=== PATIENT | female | born 1955 | race Caucasian/White ===

== ENCOUNTER 2023-03-30 21:07 | Inpatient (IN) | payer MEDICAID, OTHER ==
[~2023-03-30] VITALS: Ht 170.2 cm; Wt 97.5 kg
[~2023-03-30 21:07] MED LIST: ALIS150T PO; ASPI-1406 PO; BIMA2.5D4 EACHEYE; CALC667C4 PO; CARV12.545 PO; EMTR1TAB11 PO; FOLI0.8T23 PO; OMEP20CA14 PO; RALT400T PO
[2023-03-30 23:02] LABS: BASOPHILS % 0.6 % (0.0-2.0); DIFFERENTIAL COMMENT 0; EOSINOPHILS % 1.1 % (0.0-5.0); HEMOGLOBIN. 11.4 g/dL (12.0-16.0); LYMPHOCYTES % 7.4 % (20.0-50.0); MEAN CORPUSCULAR HEMOGLOBIN 33.3 pg (28.0-32.0); MEAN CORPUSCULAR HGB CONC 32.6 g/dL (31.0-37.0); MEAN CORPUSCULAR VOLUME 102.2 fL (81.0-99.0); MEAN PLATELET VOLUME 10.3 fl (7.4-10.4); NEUTROPHILS % 83.9 % (40.0-76.0); PLATELET 184 x1000/uL (130-400); RED BLOOD CELL COUNT 3.42 mill/uL (4.2-5.4); RED CELL DISTRIBUTION WIDTH 18.3 % (11.6-14.6)
[2023-03-30 23:14] LABS: CHLORIDE 92 mEq/L (98-107); INDEX HEMOLYSI 1 (1-3); INDEX ICTERIC 1 (1-4); INDEX LIPEMIC 1 (1-3); POTASSIUM 4.5 mEq/L (3.5-5.1); SODIUM 130 mEq/L (136-145)
[2023-03-30 23:24] LABS: ALANINE AMINOTRANSFERASE 22 IU/L (13-61); ALBUMIN 3.3 g/dL (3.4-5.0); ASPARTATE AMINOTRANSFERASE 15 IU/L (15-37); BILIRUBIN TOTAL 0.6 mg/dL (0.1-1.0); CALCIUM 9.5 mg/dL (8.5-10.1); CARBON DIOXIDE 31 mEq/L (21-32); GLUCOSE 255 mg/dL (70-105); PROTEIN TOTAL 8.1 g/dL (6.0-8.3); TROPONIN I HIGH SENSITIVITY 8 ng/L (<54); UREA NITROGEN BLOOD 42 mg/dL (7-21)
[2023-03-30 23:28] LABS: CREATININE 5.6 mg/dL (0.6-1.3)
[2023-03-31 12:14] VITALS: BP 113/36; PULSE 54; RESP 18; TEMP 97.6
[2023-03-31 12:18] VITALS: BP 113/36; PULSE 54; RESP 18; TEMP 97.9
[2023-03-31] MEDS ORDERED: ACETAMINOPHEN 325MG TABLET PO PRN (14:00)
[2023-03-31] MEDS ORDERED: DEXTROSE 50% WATER 50ML SYRINGE IV PRN (14:00)
[2023-03-31] MEDS ORDERED: ONDANSETRON HCL 4MG/2ML INJ IV PRN (14:00)
[2023-03-31] MEDS ORDERED: NON FORMULARY PATIENT HOME MED XX SCH (14:15)
[2023-03-31] MEDS: EMTRICITABINE 200MG CAPSULE PO SCH (16:17)
[2023-03-31] MEDS: TENOFOVIR 300MG TABLET PO SCH (16:17)
[2023-03-31 16:30] VITALS: BP 140/47; PULSE 60; RESP 20; TEMP 96.4
[2023-03-31] MEDS: BLOOD SUGAR DIAGNOSTIC STRIP TEST SCH ×2 (17:10→21:17)
[2023-03-31] MEDS: INSULIN LISPRO 100 UNITS/ML SUBCUT SCH ×2 (17:45→21:17)
[2023-03-31 20:00] VITALS: BP 118/56; PULSE 54; RESP 54; TEMP 97.6
[2023-03-31] MEDS ORDERED: NALOXONE HCL 0.4MG/ML VIAL IV PRN (21:45)
[2023-03-31] MEDS: HYDROCODONE/ACETAMINOPHEN 5/325MG TABLET PO PRN (22:02)
[2023-04-01] VITALS (9 sets, daily range): BP systolic 89–135; BP diastolic 29–80; PULSE 53–92; RESP 15–20; TEMP 96.5–98.6
[2023-04-01] MEDS: HYDROCODONE/ACETAMINOPHEN 5/325MG TABLET PO PRN ×2 (04:55→09:52)
[2023-04-01] MEDS: INSULIN LISPRO 100 UNITS/ML SUBCUT SCH ×4 (06:49→21:03)
[2023-04-01] MEDS: BLOOD SUGAR DIAGNOSTIC STRIP TEST SCH ×4 (06:50→21:04)
[2023-04-01 07:33] LABS: BASOPHILS % 0.8 % (0.0-2.0); DIFFERENTIAL COMMENT 0; EOSINOPHILS % 2.6 % (0.0-5.0); HEMATOCRIT. 32.4 % (36.0-48.0); HEMOGLOBIN. 10.7 g/dL (12.0-16.0); LYMPHOCYTES % 13.7 % (20.0-50.0); MEAN CORPUSCULAR HEMOGLOBIN 34.1 pg (28.0-32.0); MEAN CORPUSCULAR HGB CONC 33.1 g/dL (31.0-37.0); MEAN CORPUSCULAR VOLUME 103.1 fL (81.0-99.0); MEAN PLATELET VOLUME 10.6 fl (7.4-10.4); MONOCYTES % 5.4 % (2.0-8.0); NEUTROPHILS % 77.5 % (40.0-76.0); PLATELET 171 x1000/uL (130-400); RED BLOOD CELL COUNT 3.14 mill/uL (4.2-5.4); RED CELL DISTRIBUTION WIDTH 18.3 % (11.6-14.6); WHITE BLOOD COUNT 7.9 x1000/uL (4.5-11.0)
[2023-04-01 08:21] LABS: VITAMIN B12 SERUM 651 pg/mL (211-911)
[2023-04-01 08:26] LABS: HEPATITIS B SURFACE ANTIGEN NEGATIVE
[2023-04-01 08:54] LABS: HEPATITIS B CORE AB IGM NEGATIVE; HEPATITIS C VIR.AB 0.27 INDEXVAL (0.00-0.80)
[2023-04-01 08:56] LABS: HEPATITIS A AB IGM NEGATIVE (NEGATIVE)
[2023-04-01 09:09] LABS: CALCIUM 9.1 mg/dL (8.5-10.1)
[2023-04-01 09:23] LABS: POTASSIUM 4.7 mEq/L (3.5-5.1); THYROID STIMULATING HORMONE 3.5 uIU/mL (0.36-3.74)
[2023-04-01] MEDS: CALCIUM ACETATE 667MG CAPSULE PO SCH ×3 (09:50→17:52)
[2023-04-01] MEDS: EMTRICITABINE 200MG CAPSULE PO SCH (09:50)
[2023-04-01] MEDS: TENOFOVIR 300MG TABLET PO SCH (09:50)
[2023-04-01] MEDS: FOLIC ACID/VITAMIN B COMP W-C TABLET PO SCH (09:50)
[2023-04-01 10:15] LABS: CREATININE 6.7 mg/dL (0.6-1.3)
[2023-04-01] MEDS: METHOCARBAMOL 750MG TABLET PO SCH (20:34)
[2023-04-01] MEDS ORDERED: ATORVASTATIN CALCIUM 20MG TABLET PO SCH (21:00)
[2023-04-02] VITALS: BP 104/44; PULSE 63; RESP 19; TEMP 97.9
[2023-04-02] MEDS: HYDROCODONE/ACETAMINOPHEN 5/325MG TABLET PO PRN ×2 (00:48→06:00)
[2023-04-02 04:00] VITALS: BP 109/48; PULSE 58; RESP 16; TEMP 97.7
[2023-04-02 08:00] VITALS: BP 102/46; PULSE 55; RESP 18; TEMP 96.6
[2023-04-02] MEDS: FOLIC ACID/VITAMIN B COMP W-C TABLET PO SCH (08:58)
[2023-04-02] MEDS: METHOCARBAMOL 750MG TABLET PO SCH (08:58)
[2023-04-02] MEDS: CALCIUM ACETATE 667MG CAPSULE PO SCH ×2 (08:58→12:13)
[2023-04-02] MEDS: TENOFOVIR 300MG TABLET PO SCH (08:58)
[2023-04-02] MEDS: EMTRICITABINE 200MG CAPSULE PO SCH (08:58)
[2023-04-02] MEDS: INSULIN LISPRO 100 UNITS/ML SUBCUT SCH ×2 (08:59→12:12)
[2023-04-02 09:07] LABS: ABSOLUTE EOSINOPHILS 0.3 x10E3/uL (0.0-0.4); ABSOLUTE LYMPHOCYTES 1.1 x10E3/uL (0.7-3.1); ABSOLUTE MONOCYTES 0.5 x10E3/uL (0.1-0.9); ABSOLUTE NEUTROPHILS 6.1 x10E3/uL (1.4-7.0); BASOPHILS 1 % (Not Estab.); EOSINOPHILS 4 % (Not Estab.); HEMATOCRIT 32.3 % (34.0-46.6); HEMOGLOBIN 10.6 g/dL (11.1-15.9); IMMATURE GRANULOCYTES 0 % (Not Estab.); LYMPHOCYTES 14 % (Not Estab.); MEAN CORPUSCULAR HEMOGLOBIN 33.7 pg (26.6-33.0); MEAN CORPUSCULAR HGB CONC. 32.8 g/dL (31.5-35.7); MEAN CORPUSCULAR VOLUME 103 fL (79-97); MONOCYTES 6 % (Not Estab.); NEUTROPHILS 75 % (Not Estab.); PLATELETS 185 x10E3/uL (150-450); RBC 3.15 x10E6/uL (3.77-5.28); RED CELL DISTRIBUTION WIDTH 15.7 % (11.7-15.4); WBC 8.1 x10E3/uL (3.4-10.8)
[2023-04-02 10:10] LABS: % CD 3 POS. LYMPHOCYTES 75.5 % (57.5-86.2); % CD 4 POS. LYMPHOCYTES 47.1 % (30.8-58.5); % CD 8 POS. LYMPH 29.5 % (12.0-35.5); ABSOLUTE CD 3 831 /uL (622-2402); ABSOLUTE CD 4 HELPER 518 /uL (359-1519); ABSOLUTE CD 8 SUPPRESSOR 325 /uL (109-897)
[2023-04-02 10:44] VITALS: BP 102/46; PULSE 55; TEMP 96.6; O2SAT 95
[2023-04-02 12:00] VITALS: BP 105/45; PULSE 59; RESP 20; TEMP 96.3
[2023-04-02] MEDS: BLOOD SUGAR DIAGNOSTIC STRIP TEST SCH (12:03)
== END 2023-04-02 15:23 | disposition home or self-care (01) | DRG 48 ==
LOC: ER 21:07 → 8WST 03-31 01:19
PROVIDERS: ADMIT Internal Medicine; ATTEND Internal Medicine
PROC: 5A1D70Z Performance of Urinary Filtration, Intermittent, Less than 6 Hours Per Day (ICD-10-PCS; 2023-04-01)
PROC: 4A00X4Z Measurement of Central Nervous Electrical Activity, External Approach (ICD-10-PCS; principal; 2023-04-02)
DX: G90.8 Other disorders of autonomic nervous system (principal); G92.8 Other toxic encephalopathy; E44.1 Mild protein-calorie malnutrition; I13.2 Hypertensive heart and chronic kidney disease with heart failure and with stage 5 chronic kidney disease, or end stage renal disease; B20 Human immunodeficiency virus [HIV] disease; E87.1 Hypo-osmolality and hyponatremia; D72.829 Elevated white blood cell count, unspecified; E11.22 Type 2 diabetes mellitus with diabetic chronic kidney disease; E11.65 Type 2 diabetes mellitus with hyperglycemia; N18.6 End stage renal disease; I50.32 Chronic diastolic (congestive) heart failure; E66.01 Morbid (severe) obesity due to excess calories; Z99.2 Dependence on renal dialysis; Z96.652 Presence of left artificial knee joint; Z68.33 Body mass index [BMI] 33.0-33.9, adult; Z79.4 Long term (current) use of insulin
CPT/HCPCS: 36415; 71045; 80048; 80053; 82607; 82962; 83605; 83735; 84100; 84443; 84484; 85025; 86359; 86360; 86705; 86709; 86803; 87340; 90935; 93005; 95816; 97162; 99291; J1815

== ENCOUNTER 2023-11-08 14:26 | Inpatient (IN) | payer MEDICAID ==
[~2023-11-08] VITALS: Ht 170.2 cm; Wt 117.5 kg
[2023-11-08] MEDS: MORPHINE SULFATE 4 MG/ML INJ (FOR IV/IM USE) IV ONE (15:15)
[2023-11-08 18:05] LABS: BASOPHILS % 0.6 % (0.0-2.0); DIFFERENTIAL COMMENT 0; EOSINOPHILS % 0.8 % (0.0-5.0); HEMATOCRIT. 32.1 % (36.0-48.0); HEMOGLOBIN. 10.1 g/dL (12.0-16.0); LYMPHOCYTES % 15.4 % (20.0-50.0); MEAN CORPUSCULAR HEMOGLOBIN 32.5 pg (28.0-32.0); MEAN CORPUSCULAR HGB CONC 31.4 g/dL (31.0-37.0); MEAN CORPUSCULAR VOLUME 103.2 fL (81.0-99.0); MEAN PLATELET VOLUME 11.2 fl (7.4-10.4); MONOCYTES % 4.8 % (2.0-8.0); NEUTROPHILS % 78.4 % (40.0-76.0); PLATELET 125 x1000/uL (130-400); RED BLOOD CELL COUNT 3.11 mill/uL (4.2-5.4); RED CELL DISTRIBUTION WIDTH 20.9 % (11.6-14.6)
[2023-11-08 18:12] LABS: CHLORIDE 97 mEq/L (98-107); POTASSIUM 4.2 mEq/L (3.5-5.1); SODIUM 135 mEq/L (136-145)
[2023-11-08 18:13] LABS: CALCIUM 8.9 mg/dL (8.7-10.4); CARBON DIOXIDE 34 mEq/L (21-32)
[2023-11-08 18:14] LABS: INR 1.1; PARTIAL THROMBOPLASTIN TIME 26.1 sec (23.4-31.0); PROTHROMBIN TIME 12.1 sec (9.6-11.0)
[2023-11-08 18:18] LABS: CREATININE 3.7 mg/dL (0.6-1.0); GLUCOSE 181 mg/dL (70-105); UREA NITROGEN BLOOD 17 mg/dL (9-23)
[2023-11-08 18:19] LABS: TROPONIN I HIGH SENSITIVITY 14 ng/L (3.0-34)
[2023-11-08] MEDS: CEFTRIAXONE 1GM/50ML 50 ML IV ONE (19:27)
[2023-11-08] MEDS: MORPHINE SULFATE 4 MG/ML INJ (FOR IV/IM USE) IV NR (19:44)
[2023-11-09] VITALS (7 sets, daily range): BP systolic 99–142; BP diastolic 62–96; PULSE 62–142; RESP 18–19; TEMP 97–98.7
[2023-11-09] MEDS: HYDROCODONE/ACETAMINOPHEN 5/325MG TABLET PO PRN (00:22)
[2023-11-09] MEDS: VANCOMYCIN 2,000 MG in DEXT 5% WATER 500 ML IV NR (03:06)
[2023-11-09 08:37] LABS: HEPATITIS B SURFACE ANTIGEN NEGATIVE (Negative)
[2023-11-09 08:58] LABS: HEPATITIS C AB NON REACTIVE (Neg) (Negative)
[2023-11-09] MEDS ORDERED: DEXTROSE 50% WATER 50ML SYRINGE IV PRN ×2 (09:15)
[2023-11-09] MEDS ORDERED: MAGNESIUM/ALUMINUM HYDROXIDE/SIMETHICONE 30ML UDC PO PRN (09:15)
[2023-11-09] MEDS ORDERED: ONDANSETRON HCL 4MG/2ML INJ IV PRN (09:15)
[2023-11-09] MEDS ORDERED: CLONIDINE 0.1MG TABLET PO PRN (09:15)
[2023-11-09] MEDS ORDERED: ACETAMINOPHEN 325MG TABLET PO PRN (09:15)
[2023-11-09] MEDS ORDERED: ATOR10TA PO (09:26)
[2023-11-09] MEDS ORDERED: BIMA2.5D4 EACHEYE (09:34)
[2023-11-09] MEDS ORDERED: DIPH1TAB MT (09:34)
[2023-11-09] MEDS ORDERED: HYDR-4379 PO (09:34)
[2023-11-09] MEDS ORDERED: DOLU1TAB MT (09:35)
[2023-11-09] MEDS ORDERED: FAMO20TA8 PO (09:36)
[2023-11-09] MEDS ORDERED: EMPA10TA MT (09:36)
[2023-11-09] MEDS ORDERED: GALC120S SQ (09:39)
[2023-11-09] MEDS ORDERED: LOSA50TA41 PO (09:39)
[2023-11-09] MEDS ORDERED: RIBO100T3 * (09:43)
[2023-11-09] MEDS ORDERED: MULT-1146 PO (09:43)
[2023-11-09] MEDS ORDERED: POLY250017 MT (09:43)
[2023-11-09] MEDS ORDERED: SERT25TA74 PO (09:43)
[2023-11-09] MEDS ORDERED: SEVE800T8 PO (09:43)
[2023-11-09] MEDS ORDERED: ZINC113C10 TP (09:45)
[2023-11-09] MEDS ORDERED: UBRO50TA (09:45)
[2023-11-09] MEDS ORDERED: NALOXONE HCL 0.4MG/ML VIAL IV PRN (11:30)
[2023-11-09] MEDS: EMPAGLIFLOZIN 10MG TABLET PO SCH (12:15)
[2023-11-09] MEDS: SEVELAMER CARBONATE 800 MG TABLET PO SCH (12:29)
[2023-11-09] MEDS: LOSARTAN 50 MG TABLET PO SCH (12:36)
[2023-11-09] MEDS: CARVEDILOL 12.5MG TABLET PO SCH (12:37)
[2023-11-09] MEDS: HYDROCORTISONE 10MG TABLET PO SCH (12:37)
[2023-11-09] MEDS: SERTRALINE HCL 25MG TABLET PO SCH (12:38)
[2023-11-09] MEDS: METOPROLOL TARTRATE 5MG/5ML VIAL IV NR (12:43)
[2023-11-09] MEDS: BLOOD SUGAR DIAGNOSTIC STRIP TEST SCH (12:45)
[2023-11-09] MEDS: INSULIN LISPRO 100 UNITS/ML SUBCUT SCH (12:46)
[2023-11-09] MEDS ORDERED: APIX5TAB PO (13:30)
[2023-11-09] MEDS: APIXABAN 5 MG TABLET PO SCH (17:36)
[2023-11-09] MEDS ORDERED: ENOXAPARIN 40MG/0.4ML SYR SUBCUT SCH (18:00)
[2023-11-09 18:15] LABS: PHOSPHORUS 3.4 mg/dL (2.5-4.9)
[2023-11-09] MEDS: ATORVASTATIN CALCIUM 10MG TABLET PO SCH (21:23)
[2023-11-10] VITALS: BP 120/73; PULSE 78; RESP 18; TEMP 97.1
[2023-11-10 04:00] VITALS: BP 118/69; PULSE 56; RESP 18; TEMP 97
[2023-11-10 08:00] VITALS: BP 119/55; PULSE 97; RESP 20; TEMP 98.7
[2023-11-10 08:19] LABS: BASOPHILS % 0.9 % (0.0-2.0); EOSINOPHILS % 0.6 % (0.0-5.0); HEMATOCRIT. 33.3 % (36.0-48.0); HEMOGLOBIN. 10.3 g/dL (12.0-16.0); LYMPHOCYTES % 23.9 % (20.0-50.0); MEAN CORPUSCULAR HEMOGLOBIN 32.8 pg (28.0-32.0); MEAN CORPUSCULAR HGB CONC 30.9 g/dL (31.0-37.0); MEAN CORPUSCULAR VOLUME 105.9 fL (81.0-99.0); MEAN PLATELET VOLUME 11.6 fl (7.4-10.4); MONOCYTES % 5.7 % (2.0-8.0); NEUTROPHILS % 68.9 % (40.0-76.0); PLATELET 125 x1000/uL (130-400); RED BLOOD CELL COUNT 3.14 mill/uL (4.2-5.4); RED CELL DISTRIBUTION WIDTH 21.1 % (11.6-14.6)
[2023-11-10 08:39] LABS: DIFFERENTIAL COMMENT 1
[2023-11-10 08:48] LABS: ALANINE AMINOTRANSFERASE 14 IU/L (10-49); CHLORIDE 96 mEq/L (98-107); GLUCOSE 153 mg/dL (70-105); LDL CHOLESTEROL 51 mg/dL (5-100); POTASSIUM 5.1 mEq/L (3.5-5.1); SODIUM 133 mEq/L (136-145)
[2023-11-10 08:49] LABS: ASPARTATE AMINOTRANSFERASE 14 IU/L (<34); BILIRUBIN DIRECT 0.2 mg/dL (<=3.0); CARBON DIOXIDE 31 mEq/L (21-32); CHOLESTEROL 83 mg/dL (<200); HDL CHOLESTEROL 26 mg/dL (>65); PHOSPHORUS 4.2 mg/dL (2.5-4.9); T4 FREE 1.08 ng/dL (0.89-1.76); THYROID STIMULATING HORMONE 1.68 uIU/mL (0.55-4.78)
[2023-11-10 08:50] LABS: BILIRUBIN TOTAL 0.4 mg/dL (0.1-1.0); CALCIUM 9.3 mg/dL (8.7-10.4)
[2023-11-10 08:55] LABS: TRIGLYCERIDE 86 mg/dL (0-150); TROPONIN I HIGH SENSITIVITY 12 ng/L (3.0-34); UREA NITROGEN BLOOD 24 mg/dL (9-23)
[2023-11-10 08:58] LABS: CREATININE 5.3 mg/dL (0.6-1.0)
[2023-11-10] MEDS: OMEPRAZOLE 20MG CAPSULE EXTENDED RELEASE PO SCH (09:01)
[2023-11-10] MEDS: ASPIRIN 81MG EC TABLET PO SCH (09:01)
[2023-11-10 12:00] VITALS: BP 136/100; PULSE 108; RESP 18; TEMP 97.6
[2023-11-10] MEDS ORDERED: NYSTATIN POWDER 15GM TOP SCH (14:15)
[2023-11-10 16:00] VITALS: BP 127/63; PULSE 64; RESP 18; TEMP 97.2
[2023-11-10] MEDS: NYSTATIN POWDER 15GM TOP SCH (17:55)
[2023-11-10 20:00] VITALS: BP 105/54; PULSE 73; RESP 18; TEMP 96.2
[2023-11-10 20:53] LABS: ALBUMIN 2.9 g/dL (3.2-4.8)
[2023-11-10 20:54] LABS: PREALBUMIN 9.2 mg/dl (10.0-40.0)
[2023-11-11] VITALS (15 sets, daily range): BP systolic 109–142; BP diastolic 47–83; PULSE 54–101; RESP 16–20; TEMP 96.4–98.6
[2023-11-11 10:55] LABS: DIFFERENTIAL COMMENT 1; HEMATOCRIT. 36.3 % (36.0-48.0); HEMOGLOBIN. 11.5 g/dL (12.0-16.0); MEAN CORPUSCULAR HGB CONC 31.7 g/dL (31.0-37.0); MEAN PLATELET VOLUME 11.1 fl (7.4-10.4); PLATELET 128 x1000/uL (130-400); RED BLOOD CELL COUNT 3.49 mill/uL (4.2-5.4); RED CELL DISTRIBUTION WIDTH 21.2 % (11.6-14.6); WHITE BLOOD COUNT 5.2 x1000/uL (4.5-11.0)
[2023-11-11 11:21] LABS: CHLORIDE 96 mEq/L (98-107); POTASSIUM 4.8 mEq/L (3.5-5.1); SODIUM 134 mEq/L (136-145)
[2023-11-11 11:23] LABS: CALCIUM 9.1 mg/dL (8.7-10.4); CARBON DIOXIDE 30 mEq/L (21-32)
[2023-11-11 11:28] LABS: GLUCOSE 117 mg/dL (70-105); UREA NITROGEN BLOOD 26 mg/dL (9-23)
[2023-11-11 11:30] LABS: ALANINE AMINOTRANSFERASE 10 IU/L (10-49); ASPARTATE AMINOTRANSFERASE 13 IU/L (<34); BILIRUBIN DIRECT 0.2 mg/dL (<=3.0)
[2023-11-11 11:31] LABS: PHOSPHORUS 4.6 mg/dL (2.5-4.9)
[2023-11-11 11:32] LABS: BILIRUBIN TOTAL 0.3 mg/dL (0.1-1.0); PROTEIN TOTAL 6.2 g/dL (6.0-8.3)
[2023-11-11 11:43] LABS: CREATININE 6.3 mg/dL (0.6-1.0)
[2023-11-11 18:33] LABS: ANISOCYTOSIS 2+; NUCLEATED RED BLOOD CELLS 2 /100 WBC; PLATELET ESTIMATE DECREASED
[2023-11-12] VITALS: BP 142/70; PULSE 68; RESP 21; TEMP 97.4
[2023-11-12 04:00] VITALS: BP 110/49; PULSE 85; RESP 20; TEMP 97.5
[2023-11-12] MEDS ORDERED: FENTANYL CITRATE/PF 50MCG/ML 2ML VIAL IV NR (07:45)
[2023-11-12 08:00] VITALS: BP 82/40; PULSE 76; RESP 20; TEMP 97.6
[2023-11-12] MEDS ORDERED: ALTEPLASE 2MG/VIAL ITC NR (08:00)
[2023-11-12] MEDS ORDERED: IOHEXOL-300 100 ML BOTTLE ONE (08:53)
[2023-11-12] MEDS ORDERED: LIDOCAINE HCL 1% 10 MG/ML 10ML VIAL ONE (08:53)
[2023-11-12] MEDS ORDERED: CLINDAMYCIN 600MG PREMIX 50 ML IV SCH (09:00)
[2023-11-12] MEDS ORDERED: CLINDAMYCIN 600MG PREMIX 50 ML IV NR (10:00)
[2023-11-12 12:00] VITALS: BP 106/56; PULSE 137; RESP 20; TEMP 97.8
[2023-11-12] MEDS: DIGOXIN 500MCG/2ML AMP IV NR (13:48)
[2023-11-12 16:00] VITALS: BP 131/88; PULSE 137; PULSE 58; RESP 20; TEMP 97.4; TEMP 98.6
[2023-11-12] MEDS: AMIODARONE HCL 200 MG TABLET PO SCH (16:28)
[2023-11-12] MEDS: DILTIAZEM HCL 5MG/ML 5ML VIAL IV NR (16:29)
[2023-11-13] VITALS (11 sets, daily range): BP systolic 99–148; BP diastolic 61–88; PULSE 82–110; RESP 18–20; TEMP 97.4–98
[2023-11-13] MEDS: VANCOMYCIN 500MG PREMIX 100 ML IV SCH (21:32)
[2023-11-14] VITALS (17 sets, daily range): BP systolic 118–154; BP diastolic 51–87; PULSE 70–119; RESP 13–21; TEMP 96.5–97.1; O2SAT 98
[2023-11-14] MEDS: LORAZEPAM 0.5MG TABLET PO PRN (04:27)
[2023-11-14] MEDS ORDERED: LIDOCAINE HCL 1% 10 MG/ML 10ML VIAL ONE (07:31)
[2023-11-14] MEDS ORDERED: IOHEXOL-300 100 ML BOTTLE ONE (07:31)
[2023-11-14] MEDS ORDERED: FENTANYL CITRATE/PF 50MCG/ML 2ML VIAL IV NR (07:45)
[2023-11-14] MEDS ORDERED: ALTEPLASE 2MG/VIAL ITC NR (07:45)
[2023-11-14] MEDS ORDERED: LORAZEPAM 2MG/ML INJ ONE (07:58)
[2023-11-14] MEDS ORDERED: CLINDAMYCIN 600MG PREMIX 50 ML IV SCH ×2 (08:00→08:30)
[2023-11-14] MEDS: LORAZEPAM 2MG/ML INJ IV NR (08:01)
[2023-11-14] MEDS: FAMOTIDINE 20MG TABLET PO SCH (08:48)
[2023-11-14] MEDS ORDERED: CARVEDILOL 12.5MG TABLET PO SCH (21:00)
== END 2023-11-14 16:00 | disposition home or self-care (01) | DRG 710 ==
LOC: ER 14:45 → 7WST 19:49 → EDBEDREQ 19:51 → EDBEDREQSVC 19:51 → ER 21:45
PROVIDERS: ADMIT Internal Medicine; ATTEND Internal Medicine
PROC: 5A1D70Z Performance of Urinary Filtration, Intermittent, Less than 6 Hours Per Day (ICD-10-PCS; 2023-11-11)
PROC: 5A1D70Z Performance of Urinary Filtration, Intermittent, Less than 6 Hours Per Day (ICD-10-PCS; 2023-11-13)
PROC: 05793ZZ Dilation of Right Brachial Vein, Percutaneous Approach (ICD-10-PCS; principal; 2023-11-14)
PROC: 057D3ZZ Dilation of Right Cephalic Vein, Percutaneous Approach (ICD-10-PCS; 2023-11-14)
PROC: B51M1ZZ Fluoroscopy of Right Upper Extremity Veins using Low Osmolar Contrast (ICD-10-PCS; 2023-11-14)
PROC: B51M1ZA Fluoroscopy of Right Upper Extremity Veins using Low Osmolar Contrast, Guidance (ICD-10-PCS; 2023-11-14)
DX: L03.113 Cellulitis of right upper limb (principal); B20 Human immunodeficiency virus [HIV] disease; L89.153 Pressure ulcer of sacral region, stage 3; I13.2 Hypertensive heart and chronic kidney disease with heart failure and with stage 5 chronic kidney disease, or end stage renal disease; E27.40 Unspecified adrenocortical insufficiency; N18.6 End stage renal disease; I48.20 Chronic atrial fibrillation, unspecified; I72.8 Aneurysm of other specified arteries; E11.22 Type 2 diabetes mellitus with diabetic chronic kidney disease; I87.1 Compression of vein; I50.9 Heart failure, unspecified; F32.A Depression, unspecified; Z99.2 Dependence on renal dialysis; E66.01 Morbid (severe) obesity due to excess calories; D64.9 Anemia, unspecified; Z68.41 Body mass index [BMI] 40.0-44.9, adult; T82.818A Embolism due to vascular prosthetic devices, implants and grafts, initial encounter; E78.5 Hyperlipidemia, unspecified; Z96.659 Presence of unspecified artificial knee joint; Z87.441 Personal history of nephrotic syndrome; Z79.01 Long term (current) use of anticoagulants; Y83.2 Surgical operation with anastomosis, bypass or graft as the cause of abnormal reaction of the patient, or of later complication, without mention of misadventure at the time of the procedure
CPT/HCPCS: 36415; 36901; 36907; 73090; 80048; 80061; 80076; 80202; 82040; 82962; 83036; 83605; 83735; 83880; 84100; 84134; 84145; 84439; 84443; 84484; 85025; 86705; 87340; 90935; 93005; 93306; 93970; 93971; 99152; 99153; 99291; C1725; C1766; C1769; J0696; J1160; J1644; J1815; J2060; J2270; J2997; J3010; J3370; J3490; J7060; Q9967; G0500